=== PATIENT | female | born 1980 | race Caucasian/White ===

== ENCOUNTER 2022-08-16 16:16 | Emergency (ER) | payer OTHER, MEDICAID, SELFPAY ==
--- NOTE | ~2022-08-16 | XR_ITS ---
EXAMINATION: XR FOOT, RIGHT CLINICAL INFORMATION: Right foot pain. COMPARISON: None available. TECHNIQUE: AP, lateral, and oblique views of the right foot. FINDINGS: The bones and soft tissues are normal. No fracture. Alignment is anatomic. Joint spaces are maintained. XR/XR foot RT min 3V IMPRESSION: Unremarkable right foot.
[2022-08-16 16:59] VITALS: BP 148/98; PULSE 69; RESP 18; TEMP 36.2; O2SAT 98; BMI 25.6
--- NOTE | 2022-08-16 17:05 | ED_ITS ---
HPI - Extremity Injury (Lower) General Chief Complaint: Extremity Injury, Lower Stated Complaint: R foot inj at work Time Seen by Provider: 08/16/22 17:22 Source: patient Mode of arrival: ambulatory Limitations: no limitations History of Present Illness HPI Narrative: 42-year-old female presents to the ER for evaluation of right foot pain after she accidentally dropped a wooden bench on top of her right foot early this morning while at work. She states she has been walking on it since but the pain is worse with weight-bearing. She took ibuprofen this afternoon with minimal relief. She states the pain is on the top of her entire foot. It is worse with doristflexion and plantarflexion. No other injuries. No open wounds. MD complaint: foot injury Onset (ago): hour(s) Injury: Right: foot Type of Injury: blunt Place: work Severity: moderate Relieving factors: NSAID Exacerbating factors: weight bearing, movement and palpation Context: direct blow Associated symptoms: ambulatory Other symptoms: none Treatments prior to arrival: NSAIDS Related Data Previous Rx's Medication Instructions Recorded ibuprofen 600 mg tablet 600 mg PO Q8H PRN pain #14 tabs 08/16/22 Allergies Allergy/AdvReac Type Severity Reaction Status Date / Time ondansetron [From ZOFRAN] Allergy Severe ANAPHLAXIS, Verified 08/16/22 16:59 trachea swelling prochlorperazine Allergy Severe ANAPHYLAXIS Verified 08/16/22 16:59 [From COMPAZINE] promethazine [From PHENERGAN] Allergy Severe ANAPHYLAXIS Verified 08/16/22 16:59 Compazine Allergy Unknown throat Uncoded 10/08/17 00:00 swelling Review of Systems Review of Systems: Yes all other systems are reviewed and are negative [facility] Past Medical History Surgical History (Updated 08/16/22 @ 17:22 by Sera Sarah RN) History of ankle surgery Social History Social History Alcohol intake: never Smoked in Last 30 Days: No Use of substances other than those prescribed or required for medical reasons: No Advance Directives: No Advance Directives Information Provided: No Patient : No Physical Exam Vital Signs: Vital Signs: Last Vital Signs Temp 97.2 F 08/16/22 16:59 Pulse 69 08/16/22 16:59 Resp 18 08/16/22 16:59 BP 148/98 H 08/16/22 16:59 Pulse Ox 98 08/16/22 16:59 O2 Del Method Room Air 08/16/22 16:59 BMI result Body Mass Index 25.6 Appearance: Alert. Oriented X3. No acute distress. HEENT: normal inspection CVS: Normal heart rate and rhythm. Pulses normal. Respiratory: No respiratory distress. Skin: Skin warm and dry. Normal skin color. Normal skin turgor. No rashes. Extremities: mild erythema of the top of the right foot, no swelling, mild diffuse tenderness of the entire top of the foot, no point tenderness. pain with dorsiflexion and plantarflexion, foot is warm and well perfused, 2+ dp pulse. normal inspection and palpation of the right ankle. Neuro: Oriented X 3. No motor deficit. No sensory deficit. Course Course Course Narrative: This is an RME: Additional HPI, ROS, PE not included below will be deferred to primary provider. This is a [id number] presenting to the emergency department with a complaint of right foot pain since today. Patient was working feel day today in accidentally dropped a wooden barricade directly on the top of her foot. This occurred at 07:00AM this morning. Has been walking on it all day as she has been at work. TTP over the top of her foot Plan: XR foot Medications Administered Discontinued Medications Generic Name Dose Route Start Last Admin Trade Name Tamra PRN Reason Stop Dose Admin Acetaminophen 975 mg 08/16/22 17:47 08/16/22 17:59 Acetaminophen 325 Mg Tablet PO 08/16/22 17:48 975 mg ONCE ONE Administration Medical Decision Making Medical Decision Making [facility] Narrative: 42-year-old female presents to the ER for evaluation of right foot pain after she dropped a wooden bench onto the foot. She reports the bench weighed about 110 lb. She has been ambulating on her foot for the day with ongoing pain. On exam there is no point tenderness but mild diffuse tenderness throughout the entire top of the right foot. No point tenderness. Neurovascularly intact. X- ray was reviewed and is unremarkable for any fractures. Most likely a contusion causing her pain. She was placed in Talib wrap for compression and support. Will prescribe NSAID. Discussed rest, ice, elevation and compression. Crutches provided per request. Stable for discharge home Differential Diagnosis Differential Diagnoses: The differential diagnosis associated with the presentation includes foot contusion, metatarsal fracture, toe fracture Independent Interpretation I performed an independent interpretation of an: Plain X-Ray Interpretation: right foot without fracture, agree w/ radiologist read Radiology Impression Discussion of test interpretation with radiology: I have reviewed the radiologist's reading. Radiologist Impression: XR/XR foot RT min 3V IMPRESSION: Unremarkable right foot. Independent Historian Clinical information obtained from an independent historian. History obtained from or confirmed by: Spouse Prescription Management I considered prescription management with: Pain Medication Critical Care Time Critical Care Time Critical Care Time: No Discharge Plan Discharge Clinical Impression: Contusion of foot Patient Disposition: Home, Self-Care Instructions: Foot Contusion (ED) Additional Instructions: Your x-ray today was normal. Rest and elevate your foot when possible. Recommend TALIB wrap for support and compression. Use ice several times per day for the next 48 hours. You may bear weight as tolerated. If pain is too severe, use crutches until better. Take Motrin and/or Tylenol as needed for pain. Follow up with your doctor as needed. Prescriptions: New ibuprofen 600 mg tablet 600 mg PO Q8H PRN (Reason: pain) Qty: 14 0RF
--- NOTE | 2022-08-16 17:22 | PC.NURSE ---
patient a&ox3, c/o rt ankle/foot pain 09/16, xray performed, family at bedside, call [facility] within reach, will continue to monitor.
[2022-08-16] MEDS: Acetaminophen 325 MG TABLET 975 MG PO (17:59)
--- NOTE | 2022-08-16 18:00 | PC.NURSE ---
pt medicated for pain per order
== END 2022-08-16 18:06 | disposition home or self-care (01) ==
PROVIDERS: Emergency Provider Student in an Organized Health Care Education/Training Program
DX: S90.31XA Contusion of right foot, initial encounter (principal); M79.671 Pain in right foot; Y29.XXXA Contact with blunt object, undetermined intent, initial encounter; Y93.9 Activity, unspecified; Y92.9 Unspecified place or not applicable; Y99.0 Civilian activity done for income or pay
CPT/HCPCS: 73630; 99283